=== PATIENT | male | born 1940 ===

== ENCOUNTER 2023-06-25 13:12 | Emergency (ER) | payer MEDICAID, SELFPAY ==
[2023-06-25] VITALS (12 sets, daily range): BP systolic 127–188; BP diastolic 72–89; PULSE 75–87; RESP 18–31; TEMP 36.6–36.7; O2SAT 95–100; BMI 28.2
--- NOTE | 2023-06-25 13:43 | DI.RAD.S_ITS ---
PROCEDURE: XR CHEST 1V INDICATIONS: chest pain TECHNIQUE: One view of the chest was acquired. COMPARISON: None. FINDINGS: Surgical changes and devices: None. Lungs and pleura: Bibasilar opacities. Mediastinum: Mediastinal contours appear normal. Heart size is enlarged. Bones and chest wall: No suspicious bony lesions. Overlying soft tissues appear unremarkable. IMPRESSION: Bibasilar opacities most suggestive of pneumonia. Dictated by: Lianne Lowry M.D. on 06/25/2023 at 14:24 Approved by: Lianne Lowry M.D. on 06/25/2023 at 14:24
--- NOTE | 2023-06-25 13:44 | DI.CT.S_ITS ---
PROCEDURE: CT HEAD/BRAIN WO CON INDICATIONS: syncope TECHNIQUE: Noncontrast 4.5 mm thick angled axial sections acquired from the foramen magnum to the vertex, with coronal and sagittal reformats. For radiation dose reduction, the following was used: automated exposure control, adjustment of mA and/or kV according to patient size. COMPARISON: None. FINDINGS: Image quality: Diagnostic. CSF spaces: Basal cisterns are patent. No extra-axial fluid collections. The ventricles are symmetric in size and shape. Brain: No intracranial bleeds or masses. There is cerebral volume loss for age, with resultant ventricular and sulcal prominence. There are periventricular and deep white matter chronic small vessel ischemic changes. There is intracranial internal carotid artery atherosclerosis. Skull and face: Calvarium and visualized facial bones appear intact, without suspicious lesions. Sinuses: Visualized sinuses and mastoids are clear. IMPRESSION: No acute intracranial pathology. Dictated by: Neftali Stallings M.D. on 06/25/2023 at 15:07 Approved by: Neftali Stallings M.D. on 06/25/2023 at 15:08
--- NOTE | 2023-06-25 13:59 | PC.NURSE ---
interpretor pad used.
[2023-06-25 14:01] LABS: Add Manual Diff / Slide Review NO; Basophils Absolute Auto 0 /uL (0-100); Basophils Percent Auto 0.6 % (0-2); Eosinophils Absolute Auto 200 /uL (0-450); Eosinophils Percent Auto 2.1 % (2-4); Hematocrit 40.7 % (41-53); Hemoglobin 13.3 g/dL (13.5-17.5); Lymphocytes Absolute Auto 2300 /uL (1100-4500); Lymphocytes Percent Auto 28.8 % (25-40); Mean Corpuscular HGB Conc 32.6 % (30-36); Mean Corpuscular Hemoglobin 29.7 PG (26-34); Monocytes Absolute Auto 700 /uL (0-900); Monocytes Percent Auto 8.4 % (3-14); Neutrophils Absolute Auto 4800 /uL (1500-7000); Neutrophils Percent Auto 60.1 % (50-75); Platelet Count 194 X10^3/uL (150-400); Red Blood Cell Count 4.47 X10^6/uL (4.5-5.9); White Blood Cell Count 7.9 X10^3/uL (4.5-11.0)
[2023-06-25 14:08] LABS: INR 1.2 (0.9-1.3); Prothrombin Time 14.2 SECONDS (9.4-12.5)
[2023-06-25 14:11] LABS: PTT Partial Thromboplastin Tim 44 SECONDS (25.1-36.5)
[2023-06-25 14:12] LABS: Alanine Aminotransferase 15 IU/L (<50); Albumin 4.1 g/dL (3.5-5.0); Albumin Globulin Ratio 1.4 (1.0-2.8); Alkaline Phosphatase 83 U/L (38-126); Aspartate Aminotransferase 19 IU/L (17-59); BUN Creatinine Ratio 19.1 (6-22); Bilirubin Total 0.8 mg/dL (0.2-1.3); Blood Urea Nitrogen 29 mg/dL (9-20); Calcium 9.5 mg/dL (8.4-10.2); Carbon Dioxide 26 mmol/L (22-32); Chloride 108 mmol/L (98-107); Creatine Kinase 27 U/L (55-170); Estimated Glomerular Filt Rate 46 mL/min (>60); Glucose 101 mg/dL (80-110); HEMOLYSIS < 15 (0-50); Lipase 51 U/L (23-300); Magnesium 2.4 mg/dL (1.6-2.3); Potassium 4.7 mmol/L (3.4-5.1); Sodium 141 mmol/L (137-145); Total Protein 7.1 g/dL (6.3-8.2)
[2023-06-25 14:23] LABS: Troponin I < 0.012 ng/mL (0.01-0.034)
--- NOTE | 2023-06-25 16:54 | PC.NURSE ---
Pt ambulated to bathroom with stand by assist. Denies dizziness/lightheadedness and stated that he feel very good. Denies CP. Denies SOB.
--- NOTE | 2023-06-25 18:38 | ED_ITS ---
HPI - General Adult General Chief complaint: Syncope Stated complaint: low bp Time Seen by Provider: 06/25/23 13:44 Source: patient, family, EMS and historical interpreter Mode of arrival: EMS Limitations: language barrier (used interperter) History of Present Illness HPI narrative: 82-year-old male history of arrhythmias, CHF, prostate cancer on oral chemotherapy on Eliquis daily who presents with complaint of syncopal episode or passing out today. Reportedly 2 or 3 times while he was at the doctor's office. Family states they were told that this is side effect of his medications and happens occasionally. He has not had any more episodes here. They note his blood pressure was very high for the past 3 weeks, he did have a fall about 2 weeks ago and has a complained of some right-sided chest pain since then. He denies any headache currently, he states when his blood pressure gets high the back was head hurts. Denies any chest pain or shortness of breath, no neck pain. He has had a cough for about 3 weeks which has been nonproductive. No known nausea or vomiting. Has had some mild constipation. He has frequency with urination but no dysuria or incontinence. No new swelling of extremities. Patient did have his fairly 6 stopped 4-6 months ago. No known drug allergies. He follows with [facility] for his oncology and follows with cardiology in [place]. Related Data Previous Rx's Medication Instructions Recorded doxycycline hyclate 100 mg tablet 100 mg PO BID #20 tabs 06/25/23 Allergies Allergy/AdvReac Type Severity Reaction Status Date / Time No Known Drug Allergies Allergy Verified 06/25/23 14:28 Review of Systems Review of Systems ROS Unobtainable: All systems reviewed & are unremarkable except as noted in HPI and below Patient History Social History Smoking Status: Former smoker Smoking Status: Former smoker tobacco type: cigarettes alcohol intake frequency: 0-2 drinks per day Substance Use Type: does not use Exam Narrative Exam Narrative: GEN: well nourished, well appearing [default value], alert and oriented x [default value], patient appears to be in mild distress. HEENT: Atraumatic, pupils are equal round reactive to light, extraocular movements are intact, nares are clear, there is no conjunctival pallor. Throat is clear without any exudates, erythema, tonsillar enlargement or uvular deviation HEART: Regular rate and rhythm without murmur, clicks, rubs. pulses are equal in upper and lower extremities, no edema bilateral lower extremities. LUNGS:Lungs clear to auscultation, no wheezes, rales, crackles, chest moves symmetrically, patient has a right rib tenderness localized to a single rib level 7. ABD:bowel sounds normal, soft, non-tender, no guarding, rebound, rigidity, no masses noted, no hepatosplenomegaly :No CVA tenderness MSCL: Non-tender, no muscle atrophy, muscles strength 5/5 upper and lower extremities, full range of motion NEURO:CN 2-12 intact, sensation normal Initial Vital Signs Initial Vital Signs: Vital Signs Temperature 98.1 F 06/25/23 12:50 Pulse Rate 85 06/25/23 12:50 Respiratory Rate 18 06/25/23 12:50 Blood Pressure 167/76 H 06/25/23 12:50 Pulse Oximetry 98 06/25/23 12:50 Oxygen Delivery Method Room Air 06/25/23 12:50 Course Orders Ordered: Discontinued Medications Aspirin (Aspirin 81 Mg Chew Tab) 324 mg PO NOW ONE Stop: 06/25/23 13:44 Last Admin: 06/25/23 13:52 Dose: Not Given Documented By: ANGELA Doxycycline Hyclate (Doxycycline Hyclate 100 Mg Tablet) 100 mg PO NOW ONE Stop: 06/25/23 19:04 Last Admin: 06/25/23 19:21 Dose: 100 mg Documented By: MPO Vital Signs Vital signs: Vital Signs - 8 hr 06/25/23 18:57 Temperature 98 F Pulse Rate 84 Respiratory Rate 20 Blood Pressure 188/89 H Pulse Oximetry 97 Oxygen Delivery Method Room Air Medical Decision Making Lab Data 06/25/23 13:48 06/25/23 13:48 Labs: Lab Results 06/25/23 Range/Units 13:48 WBC 7.9 (4.5-11.0) X10^3/uL RBC 4.47 L (4.5-5.9) X10^6/uL Hgb 13.3 L (13.5-17.5) g/dL Hct 40.7 L (41-53) % MCV 91.0 (80-100) fL MCH 29.7 (26-34) PG MCHC 32.6 (30-36) % RDW 15.0 H (11.6-14.8) % Plt Count 194 (150-400) X10^3/uL Neut % (Auto) 60.1 (50-75) % Lymph % (Auto) 28.8 (25-40) % Nelson % (Auto) 8.4 (3-14) % Eos % (Auto) 2.1 (2-4) % Baso % (Auto) 0.6 (0-2) % Neut # (Auto) 4800 (7341-7000) /uL Lymph # (Auto) 2300 (4535-4247) /uL Nelson # (Auto) 700 (0-900) /uL Eos # (Auto) 200 (0-450) /uL Baso # (Auto) 0 (0-100) /uL PT 14.2 H (9.4-12.5) SECONDS INR 1.2 (0.9-1.3) APTT 44 H (25.1-36.5) SECONDS Sodium 141 (137-145) mmol/L Potassium 4.7 (3.4-5.1) mmol/L Chloride 108 H (98-107) mmol/L Carbon Dioxide 26 (22-32) mmol/L BUN 29 H (9-20) mg/dL Creatinine 1.52 H (0.66-1.25) mg/dL Estimated GFR 46 L (>60) mL/min BUN/Creatinine Ratio 19.1 (6-22) Glucose 101 (80-110) mg/dL Calcium 9.5 (8.4-10.2) mg/dL Magnesium 2.4 H (1.6-2.3) mg/dL Total Bilirubin 0.8 (0.2-1.3) mg/dL AST 19 (17-59) IU/L ALT 15 (<50) IU/L Alkaline Phosphatase 83 (38-126) U/L Total Creatine Kinase 27 L (55-170) U/L Troponin I < 0.012 (0.01-0.034) ng/mL Total Protein 7.1 (6.3-8.2) g/dL Albumin 4.1 (3.5-5.0) g/dL Globulin 3.0 (1.7-4.1) g/dL Albumin/Globulin Ratio 1.4 (1.0-2.8) Lipase 51 (23-300) U/L Urine Dip Bedside Urine Glucose Negative Bedside Urine Bilirubin - Negative Bedside Urine Ketone - Negative Urine Specific Anderson 1.015 Bedside Urine Occult Blood - Negative Bedside Urine pH 5.5 Bedside Urine Protein - Negative Bedside Urine Urobilinogen - Negative Bedside Urine Nitrite - Negative Bedside Urine Leukocytes - Negative Esterase Point of care testing: Urine Dip Bedside Urine Glucose Negative Bedside Urine Bilirubin - Negative Bedside Urine Ketone - Negative Urine Specific Anderson 1.015 Bedside Urine Occult Blood - Negative Bedside Urine pH 5.5 Bedside Urine Protein - Negative Bedside Urine Urobilinogen - Negative Bedside Urine Nitrite - Negative Bedside Urine Leukocytes - Negative Esterase Imaging Data Chest x-ray: Radiologist's Impression: Close Head CT (Signed) Neftali Stallings - 06/25/23 Chest X-Ray (Signed) Lianne Lowry - 06/25/23 Launch?[address] [address] XRay Report Signed Patient: Jack Coates MR#: [id number] : 1940 Acct:[id number] Age/Sex: 82 / M Date of Service: 06/25/23 Loc: ED Accession Number: [id number] Procedure: XR chest 1V Ordering Provider: Simona Suárez D.O. PROCEDURE: XR CHEST 1V INDICATIONS: chest pain TECHNIQUE: One view of the chest was acquired. COMPARISON: None. FINDINGS: Surgical changes and devices: None. Lungs and pleura: Bibasilar opacities. Mediastinum: Mediastinal contours appear normal. Heart size is enlarged. Bones and chest wall: No suspicious bony lesions. Overlying soft tissues appear unremarkable. IMPRESSION: Bibasilar opacities most suggestive of pneumonia. Dictated by: Lianne Lowry M.D. on 06/25/2023 at 14:24 Approved by: Lianne Lowry M.D. on 06/25/2023 at 14:24 CT scan - head: Radiologist's Impression: Close Head CT (Signed) Neftali Stallings - 06/25/23 Chest X-Ray (Signed) Lianne Lowry - 06/25/23 Launch?[address] [address] XRay Report Signed Patient: Jack Coates MR#: [id number] : 1940 Acct:[id number] Age/Sex: 82 / M Date of Service: 06/25/23 Loc: ED Accession Number: [id number] Procedure: XR chest 1V Ordering Provider: Simona Suárez D.O. PROCEDURE: XR CHEST 1V INDICATIONS: chest pain TECHNIQUE: One view of the chest was acquired. COMPARISON: None. FINDINGS: Surgical changes and devices: None. Lungs and pleura: Bibasilar opacities. Mediastinum: Mediastinal contours appear normal. Heart size is enlarged. Bones and chest wall: No suspicious bony lesions. Overlying soft tissues appear unremarkable. IMPRESSION: Bibasilar opacities most suggestive of pneumonia. Dictated by: Lianne Lowry M.D. on 06/25/2023 at 14:24 Approved by: Lianne Lowry M.D. on 06/25/2023 at 14:24 ECG Data Attestation: I personally reviewed and interpreted this ECG as follows: Prior ECG tracings: not available for review Interpretation: Sinus rhythm rate 86 AR 158 QRS is 74 QTC [address] No acute [address] elevation nonspecific change. No priors for comparison. MDM Narrative Medical decision making narrative: 82-year-old male with known cardiac history, arrhythmia on Eliquis with also known prostate cancer currently in treatment. Patient had what sounds like a syncopal episode earlier today describes them as 3 episodes but has had episodes in the past. He was at his doctor's office. Patient states along with family that this is not atypical. Patient was told by his oncology team that this would happen secondary to his medications. He has not had any hypotension here, little bit hypertensive otherwise appropriate vitals. Patient has ambulated in the department without any issues he states he feels normal. Head CT shows no acute change Chest x-ray shows bibasilar pneumonia Labs show white count of 7.9 hemoglobin of 13 platelets of 194 creatinine is 1.52 no priors for comparison but patient's family indicates this maybe normal, glucose is 101, sodium is 141 potassium 4.7 chloride of 108 and a CO2 of 26 with a BUN 29. Mag is 2.4, LFTs are negative troponins negative. Urine did not show any acute change. Discussed with patient and family they feel comfortable returning home. They elected to stop using historical interpreter part way through his care. We will treat for pneumonia, they have noted some mild constipation so we will give a script for Colace. Discharge Plan Departure Patient Disposition: Home Clinical Impression: Syncope, Pneumonia Instructions: DI for Pneumonia -- Adult Activity Restrictions/Additional Instructions: I hope you continue to feel improved. Your imaging does show pneumonia on your chest x-ray. Please take antibiotics until completed. [facility] [place]. Please return for recurrent symptoms, new chest x-ray, shortness of breath, lightheadedness or passing out, new swelling of extremities or other new or concerning changes. Prescriptions: New doxycycline hyclate 100 mg tablet 100 mg PO BID Qty: 20 0RF Referrals: Landon Seymour MD [Primary Care Provider] - Stand Alone Forms: Patient Portal/API
[2023-06-25] MEDS: DOXYCYCLINE HYCLATE 100 MG TABLET PO (19:21)
== END 2023-06-25 19:28 | disposition home or self-care (01) ==
PROVIDERS: Emergency Medicine; Emergency Provider Emergency Medicine; PCP Internal Medicine
DX: R55 Syncope and collapse (principal); J18.9 Pneumonia, unspecified organism; R07.9 Chest pain, unspecified; C61 Malignant neoplasm of prostate; Z79.01 Long term (current) use of anticoagulants
CPT/HCPCS: 36415; 70450; 71045; 80053; 81003; 82550; 83690; 83735; 84484; 85025; 85610; 85730; 93005; 99284

== ENCOUNTER → 2025-01-18 08:39 | Outpatient (CLI) | payer OTHER, SELFPAY ==
--- NOTE | 2025-01-18 08:45 | DI.ECHO.S_ITS ---
[facility] : : [address] : : [place] : : [id number] : : Phone: [phone] Echocardiogram Report + + :Name: HAYLEY MCFARLANE Study Date: 01/18/2025 Height: 66 in : :[facility] ReadingLocation: Weight: 185 lb : : Gender: Male BSA: 1.9 m2 : :: 1940 Age: 84 yrs BP: 108/65 mmHg: :Reason For Study: Chronic systolic heart failure : :Ordering Physician: UTE, : :NKECHI Performed By: Jose Alfredo Watters : :Referring: NKECHI MCDONNELL : + + Interpretation Summary 1) Normal left ventricular thickness, size, and systolic function (EF 55-60%). 2) Regional wall motion abnormalities cannot be excluded due to limited visualization. 3) Normal right ventricular size and function. 4) No significant valvular abnormalities. 5) No prior Echo available for comparison. Procedure: A two-dimensional transthoracic echocardiogram with color flow and Doppler was performed. The study quality was technically difficult. The patient had an echocardiogram, but there is no comparison study available. The patient was in normal sinus rhythm during the exam. Left Ventricle: The left ventricle is normal in size. Left ventricular wall thickness is at the upper limits of normal. Overall left ventricular systolic function is preserved. The ejection fraction is estimated to be 55-60%. Due to the axis of the heart in the chest, some slices where not well visualized included apical two-chamber view. Overall ejection fraction appears preserved. Regional wall motion abnormalities cannot be excluded due to limited visualization. Diastolic function is indeterminate. Right Ventricle: The right ventricle is normal in size and function. Atria: Left atrium appears normal in size with a parasternal left atrium two dimensional measurement of 3.4 cm. Unable to perform left atrial volume measurement with limited visualization of the two-chamber view. There is no Doppler evidence for an interatrial shunt. Mitral Valve: The mitral valve is grossly normal. There is no mitral valve stenosis. There is trace mitral regurgitation. Aortic Valve: The aortic valve is trileaflet. The aortic valve opens well. Aortic valve appears with no evidence of aortic stenosis. Spectral doppler velocities may be under estimated due to off axis images. There is no aortic valve stenosis. There is trace aortic regurgitation. Tricuspid Valve: The tricuspid valve is not well visualized, but is grossly normal. There is trace tricuspid regurgitation. Right ventricular systolic pressure is estimated to be 16 mmHg plus the clinically estimated CVP which cannot be estimated on this exam. Pulmonic Valve: The pulmonic valve is not well seen, but is grossly normal. There is trace pulmonic regurgitation. Great Vessels: The aortic root is normal size. Based on patients BSA the proximal ascending aorta is mildly dilated with a max diameter of 4.1 cm. The pulmonary artery is normal size. The inferior vena cava was not well visualized. Pericardium/ Pleura There is a trivial pericardial effusion noted. MMode/2D Measurements & Calculations LVIDd: 4.3 cm LVOT diam: 2.1 cm LVIDs: 2.6 cm Ao root diam: 3.2 cm FS: 40.1 % asc Aorta Diam: 4.1 cm IVSd: 1.1 cm LVPWd: 1.0 cm LV mckeon. diameter/BSA (cm/m^2): 2.2 LV sys. diameter/BSA (cm/m^2): 1.3 LA A4 area: 15.3 cm2 RVD1 (basal): 3.6 cm LA length (vol): 5.2 cm RVD2 (mid): 3.4 cm TAPSE: 2.2 cm Doppler Measurements & Calculations Ao V2 max: 79.2 cm/sec LVOT Max Robin: 69.1 cm/sec Ao V2 mean: 57.7 cm/sec LV V1 max P.9 mmHg Ao max P.5 mmHg LV V1 VTI: 12.4 cm Ao mean P.5 mmHg OTTO(I,D): 2.5 cm2 Ao V2 VTI: 17.1 cm OTTO(V,D): 3.0 cm2 sev ratio: 0.72 OTTO indexed to BSA (cm^2/m^2): 1.3 MV E max robin: 41.0 cm/sec TR max robin: 199.5 cm/sec MV A max robin: 58.7 cm/sec TR max P.9 mmHg MV E/A: 0.70 PA V2 max: 79.0 cm/sec Med Peak E' Robin: 2.6 cm/sec PA V2 mean: 56.6 cm/sec E/E' med: 15.6 PA mean P.4 mmHg Lat Peak E' Robin: 3.8 cm/sec PA pr(Accel): 54.6 mmHg E/E' lat: 10.8 E/e' average: 13.2 MV dec time: 0.20 sec SV(LVOT): 43.3 ml Qp/Qs (V,Ao): 1.0/3.7 Qp/Qs (GASTON Chaudhry): 1.0/1.4 Reading Physician:09:40 AM
== END ==
PROVIDERS: PCP Nurse Practitioner Acute Care; Referring Provider Internal Medicine Cardiovascular Disease; Visit Provider Internal Medicine Cardiovascular Disease
DX: I50.22 Chronic systolic (congestive) heart failure (principal); I77.89 Other specified disorders of arteries and arterioles
CPT/HCPCS: 93306